=== PATIENT | female | born 1975 | race Caucasian/White ===

== ENCOUNTER 2018-04-05 05:14 | Day surgery (SDC) | payer OTHER ==
[2018-04-05] MEDS ORDERED: PROPOFOL 20 ML ONE (10:01)
[2018-04-05] MEDS ORDERED: MIDAZOLAM HCL 2 MG/2 ML SINGLE DOSE VIAL ONE (10:01)
[2018-04-05] MEDS ORDERED: oxyCODONE HCL 5 MG TABLET PO PRN (10:04)
[2018-04-05] MEDS ORDERED: ACETAMINOPHEN 325 MG TABLET (FP) PO PRN (10:04)
[2018-04-05] MEDS ORDERED: IBUPROFEN 400 MG TABLET (FP) PO PRN (10:04)
[2018-04-05] MEDS ORDERED: ONDANSETRON 4 MG/2 ML VIAL IVPUSH PRN ×2 (10:05→10:52)
--- NOTE | 2018-04-05 10:06 | HP ---
Admitting History and Physical - Admission History of Present Illness: 42 yo with hx/o menometrorrhagia for hysteroscopy, D&C History Source: Patient Limitations to Obtaining History: No Limitations - Past Medical History Cardiovascular: No: HTN Pulmonary: No: Asthma Gastrointestinal: No: GERD ...LMP: 04/01/18 ...: No Heme/Onc: Yes: Anemia - Past Surgical History Past Surgical History: Yes: None - Smoking History Smoking history: Former smoker Have you smoked in the past 12 months: No - Alcohol/Substance Use Hx Alcohol Use: Yes ([employer]-OCCAS) History of Substance Use: reports: None Home Medications - Allergies Allergies/Adverse Reactions: Allergies Allergy/AdvReac Type Severity Reaction Status Date / Time No Known Allergies Allergy Verified 04/05/18 09:10 - Home Medications Home Medications: Ambulatory Orders Multivitamin [Multiple Vitamins] 1 each PO DAILY 03/31/18 Family Disease History - Family Disease History Family History: Denies Review of Systems - Review of Systems Constitutional: reports: No Symptoms HENT: reports: No Symptoms Neck: reports: No Symptoms Cardiovascular: reports: No Symptoms Respiratory: reports: No Symptoms Gastrointestinal: reports: No Symptoms Genitourinary: reports: No Symptoms Musculoskeletal: reports: No Symptoms Integumentary: reports: No Symptoms Neurological: reports: No Symptoms Endocrine: reports: No Symptoms Hematology/Lymphatic: reports: No Symptoms Psychiatric: reports: No Symptoms Physical Examination Vital Signs: Vital Signs Temperature 98.1 F 04/05/18 09:09 Pulse Rate 89 04/05/18 09:09 Respiratory Rate 20 04/05/18 09:09 Blood Pressure 123/78 04/05/18 09:09 O2 Sat by Pulse Oximetry (%) 100 04/05/18 09:08 Constitutional: Yes: Well Nourished, No Distress, Calm Cardiovascular: Yes: Regular Rate and Rhythm Respiratory: Yes: Regular, CTA Bilaterally Gastrointestinal: Yes: Normal Bowel Sounds, Soft Edema: No Integumentary: Yes: WNL Psychiatric: Yes: Alert, Oriented Assessment/Plan 42 yo with menometrorrhagia for hysteroscopy D&C 1. Consents reviewed and signed 2. SCDs for DVT prophylaxis 3. Preop labs reviewed 4. Will proceed to OR
[2018-04-05] MEDS ORDERED: ceFAZolin SODIUM 1 GM VIAL ONE (10:16)
[2018-04-05] MEDS ORDERED: ceFAZolin SODIUM 1 GM VIAL IVPB ONE (10:19)
[2018-04-05] MEDS ORDERED: DEXAMETHASONE SOD PHOSPHATE 4 MG/1 ML VIAL ONE (10:21)
[2018-04-05] MEDS ORDERED: KETOROLAC TROMETHAMINE 30 MG/1 ML VIAL ONE (10:32)
[2018-04-05] MEDS ORDERED: LACTATED RINGERS SOLUTION 1,000 ML IV SCH (11:00)
--- NOTE | 2018-04-05 11:42 | OP ---
DATE OF OPERATION: 04/05/2018 ATTENDING PHYSICIAN RESPONSIBLE TO SIGN REPORT: Isaias Woodruff MD PREOPERATIVE DIAGNOSIS: Menometrorrhagia. POSTOPERATIVE DIAGNOSIS: Menometrorrhagia. SURGERY: Hysteroscopy, dilation and curettage. SURGEON: Isaias Woodruff MD ANESTHESIA: General. ANESTHESIOLOGIST: Jessica Vallejo MD ESTIMATED BLOOD LOSS: 5 mL. URINE OUTPUT: Not recorded. FLUIDS GIVEN: 600 mL. INDICATIONS: Patient is a 42-year-old woman with history of menometrorrhagia for surgical management. She was counseled regarding risks, benefits, alternatives, and complications of procedure including infection, bleeding, damage to surrounding organs, uterine perforation. She expressed understanding and was brought to the operating room. DESCRIPTION OF PROCEDURE: When anesthesia was found to be adequate, patient was prepped and draped in a normal sterile fashion, placed in dorsal lithotomy position using Deshawn stirrups. A weighted speculum was placed in the posterior portion of the patients vagina. The anterior vagina was retracted using a Hernandez retractor, and the anterior lip of the cervix was grasped using a single-tooth tenaculum. The cervix was found to be dilated. Finally hysteroscope was placed, and visualization of bilateral cornua, ostia, and normal-appearing endometrium. Gentle sharp curetting was performed. All specimens were sent to Pathology. All instruments were removed from the patients vagina. The patient was awoken from anesthesia, brought to the recovery room in stable condition. ISAIAS WOODRUFF M.D. [id number]
--- NOTE | 2018-04-05 12:29 | OP ---
Operative Note - Note: Operative Date: 04/05/18 Pre-Operative Diagnosis: menometrorrhagia Operation: hysteroscopy, dilation and curettage Findings: normal appearing endometrium, bilateral ostia visualized Post-Operative Diagnosis: Same as Pre-op Surgeon: Lisa Woodruff Anesthesiologist/MACHINIST INSTRUCTOR: Jessica Vallejo Anesthesia: General Estimated Blood Loss (mls): 5 Fluid Volume Replaced (mls): 600 Operative Report Dictated: Yes
[2018-04-05 13:14] VITALS: BP 104/59; PULSE 78; TEMP 98.6
--- NOTE | 2018-04-06 11:52 | PATH ---
Surgical Pathology Report Patient Name: CHRISTI GOODSON [facility]. Rec. #: [id number] /Age/Gender: 1975 (Age: 42) / F Account: [id number] Location: [facility] Taken: 04/05/2018 Received: 04/05/2018 Reported: 04/06/2018 Physicians: Lisa Woodruff Specimen(s) Received ENDOMETRIAL CURETTINGS Clinical History Excessive menstrual bleeding Final Diagnosis ENDOMETRIAL POLYP AND CURETTINGS: FRAGMENTS OF ENDOMETRIAL POLYP. SEPARATE FRAGMENTS OF SECRETORY TYPE ENDOMETRIUM WITH STROMAL BREAKDOWN, CONSISTENT WITH MENSTRUAL ENDOMETRIUM. SEPARATE FRAGMENTS OF ENDOCERVICAL TISSUE WITH NO DIAGNOSTIC ABNORMALITIES. Electronically Signed Fredi Shannon M.D. Gross Description Received in formalin, labeled "endometrial curettings" are multiple dark brown portions of soft tissue measuring 2 x 2 x 0.1 cm in aggregate. The specimens are submitted in toto in one cassette. BARB/04/05/2018 [email or web address]/04/05/2018
== END 2018-04-05 13:15 | disposition home or self-care (01) ==
LOC: JASU-SURG 05:14
PROVIDERS: ATTEND Obstetrics & Gynecology
PROC: 0UDB7ZX Extraction of Endometrium, Via Natural or Artificial Opening, Diagnostic (ICD-10-PCS; principal; 2018-04-05 10:00)
PROC: 0UJD8ZZ Inspection of Uterus and Cervix, Via Natural or Artificial Opening Endoscopic (ICD-10-PCS; 2018-04-05 10:00)
DX: N92.1 Excessive and frequent menstruation with irregular cycle (principal)
CPT/HCPCS: 84703; 88305-TC; 94760